=== PATIENT | male | born 1985 | race Hispanic/Latino ===

== ENCOUNTER 2021-07-01 05:29 | Emergency (ER) | payer OTHER ==
[~2021-07-01] VITALS: Ht 177.8 cm; Wt 132.4 kg
[2021-07-01 06:15] LABS: BASOPHILS % (AUTO) 0.4 % (0.0-5.0); HEMATOCRIT 49.5 % (42-54); LYMPHOCYTES % (AUTO) 18.9 % (21.0-51.0); MEAN CORPUSCULAR HGB CONC 32.5 g/dL (32.0-36.0); MONOCYTES % (AUTO) 14.5 % (3.0-13.0); NEUTROPHILS % (AUTO) 63.7 % (40.0-77.0); PLATELET COUNT (AUTO) 253 K/uL (130-400); RED BLOOD CELL COUNT(AUTO) 6.19 MIL/uL (4.50-6.20); RED CELL DISTRIBUTION WIDTH 14.2 % (11.0-15.5)
[2021-07-01 06:27] LABS: APPEARANCE,URINE CLEAR (CLEAR); BILIRUBIN,URINE NEGATIVE (NEGATIVE); COLOR,URINE YELLOW (YELLOW); GLUCOSE, URINE (UA) NEGATIVE (NEGATIVE); KETONES,URINE NEGATIVE (NEGATIVE); LEUKOCYTE ESTERASE ,URINE NEGATIVE (NEGATIVE); NITRATE,URINE NEGATIVE (NEGATIVE); OCCULT BLOOD,URINE NEGATIVE (NEGATIVE); PROTEIN,URINE NEGATIVE (NEGATIVE); UROBILINOGEN,URINE 0.2 mg/dL (0.2-1.0)
[2021-07-01] MEDS ORDERED: MORPHINE 2 MG SYG IVP ONE (06:30)
[2021-07-01] MEDS ORDERED: 0.9%NACL 1000ML 1,000 ML IV ONE ×2 (06:30→10:29)
[2021-07-01] MEDS ORDERED: ONDANSETRON 4MG INJ IVP ONE (06:30)
[2021-07-01] MEDS ORDERED: FAMOTIDINE 20MG VIAL IV ONE (06:30)
[2021-07-01 06:35] LABS: AMPHET/METH SCREEN,URINE NEGATIVE (NEGATIVE); BARBITURATE SCREEN, URINE NEGATIVE (NEGATIVE); BENZODIAZEPINES SCREEN,URINE NEGATIVE (NEGATIVE); CANNABINOID SCREEN,URINE NEGATIVE (NEGATIVE); COCAINE SCREEN,URINE NEGATIVE (NEGATIVE); OPIATE SCREEN,URINE NEGATIVE (NEGATIVE); PHENCYCLIDINE SCREEN,URINE NEGATIVE (NEGATIVE)
[2021-07-01 06:39] LABS: ALBUMIN 3.2 g/dL (3.5-5.0); BILIRUBIN,TOTAL 0.4 mg/dL (0.2-1.0); POTASSIUM 3.6 mmol/L (3.5-5.1); TOTAL PROTEIN, SERUM 7.2 g/dL (6.0-8.3)
[2021-07-01 13:35] VITALS: BP 126/78
== END 2021-07-01 13:37 | disposition home or self-care (01) ==
LOC: EDH 05:29
DX: E86.0 Dehydration (principal); R74.8 Abnormal levels of other serum enzymes; Z20.822 Contact with and (suspected) exposure to COVID-19
CPT/HCPCS: 36415; 80053; 80305; 81003; 82550 ×2; 83690; 85025; 87635; 87804 ×2; 87880; 96361; 96374; 96375; 99285; C9803; J2405; J3490; J7030 ×2

== ENCOUNTER 2022-03-01 23:24 | Emergency (ER) | payer OTHER ==
[~2022-03-01] VITALS: Ht 177.8 cm; Wt 131.5 kg
[2022-03-01 23:58] LABS: BASOPHILS % (AUTO) 0.4 % (0.0-5.0); EOSINOPHILS % (AUTO) 2.6 % (0.0-8.0); HEMATOCRIT 50.4 % (42-54); LYMPHOCYTES % (AUTO) 24.5 % (21.0-51.0); MEAN CORPUSCULAR HEMOGLOBIN 26.1 pg (27.0-33.0); MEAN CORPUSCULAR HGB CONC 33.1 g/dL (32.0-36.0); MEAN CORPUSCULAR VOLUME 78.8 fL (79-99); MONOCYTES % (AUTO) 8.1 % (3.0-13.0); NEUTROPHILS % (AUTO) 63.8 % (40.0-77.0); PLATELET COUNT (AUTO) 358 K/uL (130-400); RED CELL DISTRIBUTION WIDTH 12.9 % (11.0-15.5); WHITE BLOOD COUNT (AUTO) 10.1 K/uL (4.8-10.8)
[2022-03-02] MEDS ORDERED: 0.9%NACL 1000ML 1,000 ML IV ONE
[2022-03-02] MEDS ORDERED: PROCHLORPERAZINE 10MG/2ML INJ IV ONE
[2022-03-02] MEDS ORDERED: ONDANSETRON 4MG INJ IVP ONE
[2022-03-02 00:03] LABS: APPEARANCE,URINE CLEAR (CLEAR); BILIRUBIN,URINE NEGATIVE (NEGATIVE); COLOR,URINE LIGHT-YELLOW (YELLOW); GLUCOSE, URINE (UA) >=1000 mg/dL (NEGATIVE); KETONES,URINE 5 mg/dL (NEGATIVE); LEUKOCYTE ESTERASE ,URINE NEGATIVE Leu/uL (NEGATIVE); NITRATE,URINE NEGATIVE (NEGATIVE); OCCULT BLOOD,URINE NEGATIVE (NEGATIVE); PROTEIN,URINE NEGATIVE (NEGATIVE); UROBILINOGEN,URINE 0.2 mg/dL (0.2-1.0)
[2022-03-02 00:08] LABS: CREATININE 1.2 mg/dL (0.5-1.5)
[2022-03-02 00:12] LABS: ALBUMIN 3.9 g/dL (3.5-5.0)
[2022-03-02 00:15] LABS: BACTERIA,URINE None Seen /HPF (None Seen); RBC,URINE 0-1 /HPF (0-1); SQUAMOUS EPITHELIAL CELL,UR Rare /HPF (0-2); WBC,URINE 0-1 /HPF (0-1)
[2022-03-02 01:00] VITALS: BP 127/68
[2022-03-02] MEDS ORDERED: FAMO-136 PO (01:49)
[2022-03-02] MEDS ORDERED: PROC5TAB54 PO (01:49)
== END 2022-03-02 02:05 | disposition home or self-care (01) ==
LOC: EDH 23:24
DX: K29.70 Gastritis, unspecified, without bleeding (principal); K52.9 Noninfective gastroenteritis and colitis, unspecified; E11.9 Type 2 diabetes mellitus without complications; E78.00 Pure hypercholesterolemia, unspecified; F41.9 Anxiety disorder, unspecified
CPT/HCPCS: 99284; 96374; 96375; 84484; 80053; 83690; 85025; 81001; 36415; 93005; J0780; J2405